=== PATIENT | male | born 1995 | race Caucasian/White ===

== ENCOUNTER 2017-01-10 11:14 | Emergency (ER) | payer OTHER ==
[2016-08-06 02:35] VITALS: BP 116/69
--- NOTE | 2017-01-10 11:36 | ED Physician Documentation ---
General Adult - HISTORIAN Historian: patient - HPI Chief Complaint: General Adult Onset: days ago Further Comments: yes (21 year old male patient presents with request for STD testing and treatment. Patient states his girlfriend told him to go be tested and treated. Patient unsure of her diagnosis. Patient denies any symptoms.) - ROS CONST: no problems EYES/ENT: none CVS/RESP: none GI/: none MS/SKIN/LYMPH: none NEURO/PSYCH: denies: headache - PAST HX Past History: none Other History: none Allergies/Adverse Reactions: Allergies Allergy/AdvReac Type Severity Reaction Status Date / Time No Known Drug Allergies Allergy Verified 08/06/16 01:13 Home Medications: Ambulatory Orders Medication Instructions Recorded NK [NK] 08/06/16 - SOCIAL HX Smoking History: cigarettes - FAMILY HX Family History: No - VITAL SIGNS Vital Signs: Vital Signs Temp Pulse Resp BP Pulse Ox 116/69 08/06/16 02:25 - REVIEWED ASSESSMENTS Nursing Assessment Reviewed: Yes Vitals Reviewed: Yes Progress - Progress Progress: STD education, encouraged patient to call girlfriend and find out exact diagnosis. Patient called girlfriend, who reported having Gardnerella. Educated patient on bacterial vaginosis. Explained he did not need testing or treatment. No intercourse until she completes treatment. General Adult Physical Exam - PHYSICAL EXAM GENERAL APPEARANCE: [id number] N EENT: eye inspection normal, JOSE CVS: reg rate & rhythm RECTAL: other (patient refused male exam) NEURO: oriented X3 Discharge Clincal Impression: Concern about STD in male without diagnosis Referrals: Primary Doctor,No [Primary Care Provider] - 2 Days Additional Instructions: Do not have sexual intercourse with your partner until she has finished her treatment for Bacterial Vaginosis (gardnerella) Home Medications: Ambulatory Orders NK [NK] 08/06/16 Condition: Stable Disposition: 01 HOME, SELF-CARE Decision to Admit: NO Decision Time: 11:35
== END 2017-01-10 11:40 | disposition home or self-care (01) ==
LOC: ED 11:14
DX: Z71.1 Person with feared health complaint in whom no diagnosis is made (principal)

== ENCOUNTER 2017-10-17 03:06 | Emergency (ER) | payer OTHER ==
[2017-10-17] MEDS: IPRATROPIUM/ALBUTEROL SULFATE 3 ML AMPUL.NEB NEB STA (03:28)
--- NOTE | 2017-10-17 04:02 | ED Physician Documentation ---
Upper Respiratory Symptoms - HISTORIAN Historian: patient - HPI Stated Complaint: difficulty breathing Chief Complaint: Cough/ Upper Respiratory Onset: days ago (14) Duration: other (worse) Context: denies: recent foreign travel, insect bite(s), tick(s), recent chemotherapy, multiple patients, same sx, other Severity: moderate Associated Symptoms: sinus drainage, hoarseness, other (dry cough). denies: fever, chills, sweating, earache, runny nose, sinus pain, sore throat, allergy, hay fever, bloody cough, productive cough, headache Further Comments: yes (22 year old male patient presents with complaint of cough and wheezing. Patient states he was "been dealing with this about 2 weeks ". States symptoms have become worse since he stopped smoking meth. Reports history of asthma as a child, has not had an inhaler since he was 13.) - ROS CONST/EYES: denies: weakness, eye redness, eye itching, other CVS/RESP: shortness of breath. denies: chest pain, palpitations LYMPH: denies: leg swelling, rash, swollen glands, ankle swelling, other GI/: none NEURO/PSYCH: denies: fainting, dizziness, confusion, anxiety, depression, other MS/SKIN: denies: joint pain, muscle aches, rash, other - PAST HX Lung Disease: asthma PE Risk Factors: none Allergies/Adverse Reactions: Allergies Allergy/AdvReac Type Severity Reaction Status Date / Time No Known Drug Allergies Allergy Verified 10/17/17 03:22 Home Medications: Ambulatory Orders Medication Instructions Recorded Albuterol Sulfate [Proair HFA] 1 inh IH Q4H PRN #1 hfa.aer.ad 10/17/17 Azithromycin [Zithromax] 250 mg PO DAILY #6 tablet 10/17/17 - SOCIAL HX Smoking History: cigarettes Drug Use: methamphetamines - FAMILY HX Family History: denies: none - VITAL SIGNS Vital Signs: Vital Signs Temp Pulse Resp BP Pulse Ox 97.9 F 81 16 148/69 97 10/17/17 03:07 10/17/17 04:50 10/17/17 04:50 10/17/17 04:50 10/17/17 04:50 - REVIEWED ASSESSMENTS Nursing Assessment Reviewed: Yes Vitals Reviewed: Yes Progress - Progress Progress: BBS improved after duoneb; faint expiratory on right. ED Results Lab/Radiology - Lab Results Lab Results: Lab Results 10/17/17 10/17/17 04:04 04:04 WBC 11.50 K/ul K/ul (4.00-12.00) RBC 5.13 M/ul M/ul (3.90-5.20) Hgb 15.6 g/dL g/dL (12.0-18.0) Hct 47.8 % % (37.0-53.0) MCV 93.3 fl fl (80.0-100.0) MCH 30.4 pg pg (28.0-34.0) MCHC 32.6 g/dL g/dL (30.0-36.0) RDW 12.9 % % (11.3-14.3) Plt Count 207 K/mm3 K/mm3 (130-400) Neut % (Auto) 68.1 % % (39.0-79.0) Lymph % (Auto) 21.1 % % (16.0-50.0) [place] % (Auto) 4.7 % % (0.0-11.0) Eos % (Auto) 4.5 % % (0.0-6.8) Baso % (Auto) 0.4 (0.0-1.5) Neut # (Auto) 7.8 # k/uL H # k/uL (1.4-7.7) Lymph # (Auto) 2.4 # k/uL # k/uL (0.6-4.0) [place] # (Auto) 0.5 # k/uL # k/uL (0.0-0.9) Eos # (Auto) 0.5 # k/uL # k/uL (0.0-0.6) Baso # (Auto) 0.0 # k/uL # k/uL (0.0-0.5) Reactive Lymphs % 1.2 % % (0.0-5.0) Reactive Lymphs # 0.1 # k/uL # k/uL (0.0-0.8) Sodium 141 mmol/L mmol/L (136-145) Potassium 3.8 mmol/L mmol/L (3.5-5.1) Chloride 99 mmol/L mmol/L (98-107) Carbon Dioxide 29 mmol/L mmol/L (22-30) BUN 10 mg/dL mg/dL (9-20) Creatinine 1.00 mg/dL mg/dL (0.66-1.25) Estimated Creat Clear 124 Est GFR ( Amer) > 60 (60 - ) Est GFR (Non-Af Amer) > 60 (60 - ) Glucose 89 mg/dL mg/dL (74-106) Calcium 9.4 mg/dL mg/dL (8.4-10.2) Total Bilirubin 0.6 mg/dL mg/dL (0.2-1.3) AST 34 U/L U/L (15-46) ALT 42 U/L U/L (13-69) Alkaline Phosphatase 108 U/L U/L (38-126) Total Protein 7.2 g/dL g/dL (6.3-8.2) Albumin 4.4 g/dL g/dL (3.5-5.0) - Radiology Radiology Impressions: PA and lateral chest Clinical history: PT STATES PRODUCTIVE COUGH X 2 WEEKS Findings: Examination of the chest in PA and lateral views with no prior films for comparison demonstrates the lungs to be hyperinflated but clear. Cardiovascular and mediastinal silhouettes are within normal limits. Bony thorax is intact. Impression: 1. Hyperinflation. 2. No active disease. Electronically signed on Oct 17, 2017 4:03:19 AM ABORIGINAL LIAISON OFFICER by: [place] - Orders Orders: ED Orders Category Date Time Status CHEST 2VIEW [RAD] Stat Exams 10/17/17 03:45 Completed CBC/PLATELET/DIFF Stat Lab 10/17/17 04:04 Completed CMP Stat Lab 10/17/17 04:04 Completed Albuterol Sulfate [ProAir RespiClick] Med 10/17/17 04:16 Discontinued 1 puff INH .STK-MED ONE Albuterol Sulfate [ProAir RespiClick] Med 10/17/17 04:12 Discontinued 1 puff INH Q4H PRN Albuterol Sulfate [Ventolin] Med 10/17/17 04:11 Discontinued 2.5 mg NEB NOW ONE Guaifenesin/Codeine Phosphate [Robitussin AC] Med 10/17/17 03:29 Discontinued 10 ml PO NOW ONE Ipratropium/Albuterol Sulfate [Duoneb] Med 10/17/17 03:23 Discontinued 3 ml NEB STAT STA Upper Respiratory Symptoms - EXAM General Appearance: mild distress EENT: eyes nml inspection, nml ENT inspection, lids & conjunct. nml, PERRL, ear nml, nose nml, pharynx nml, airway nml Respiratory: no resp. distress, no pain on inspiration, speaks full sentences, wheezes (expiratory, bilaterally), no pleuritic chest pain Abdomen: non-tender, no organomegaly, nml bowel sounds, no distention CVS: reg rate & rhythm, heart sounds normal, equal pulses, no murmur, no gallop , PMI nml, no JVD, no friction rub, 24 Skin: color nml, no rash, warm,dry Extremities: non-tender, normal range of motion, no evidence of injury, no edema , J, STREET [employer] Neuro/Psych: oriented x3, neuro intact, mood/affect nml, CN's nml as tested Discharge Clincal Impression: History of methamphetamine abuse Asthma Qualifiers: Asthma severity: mild Asthma persistence: intermittent Asthma complication type : uncomplicated Qualified Code(s): J45.20 - Mild intermittent asthma, uncomplicated Prescriptions: Albuterol Sulfate [Proair HFA] 1 inh IH Q4H PRN #1 hfa.aer.ad PRN Reason: Wheezing Azithromycin [Zithromax] 250 mg PO DAILY #6 tablet Referrals: Primary Doctor,No [Primary Care Provider] - 2 Days Additional Instructions: 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 acoustical tile carpenters supervisor an over the counter decongestant such as dayquil. You may want to try Vicks rub on your chest and/or feet Increase your fluid intake Tylenol or Ibuprofen as needed for fever, pain and body aches. See your primary care doctor if your symptoms become worse or do not improve in the next 2-3 days. See your primary doctor or return to the ER if you have increase shortness of breath or difficulty breathing Condition: Stable Disposition: 01 HOME, SELF-CARE Decision to Admit: NO Decision Time: 04:40
[2017-10-17] MEDS: GUAIFENESIN/CODEINE 10 ML S/F LIQUID DOSE CUP PO ONE (04:10)
[2017-10-17 04:11] LABS: BASOPHILS % 0.4 (0.0-1.5); EOSINOPHILS % 4.5 % (0.0-6.8); MEAN CORPUSCULAR HEMOGLOBIN 30.4 pg (28.0-34.0); MEAN CORPUSCULAR VOLUME 93.3 fl (80.0-100.0); MONOCYTES % 4.7 % (0.0-11.0); NEUTROPHILS # 7.8 # k/uL (1.4-7.7)
[2017-10-17] MEDS: ALBUTEROL SULFATE 2.5 MG/3 ML AMPUL.NEB NEB ONE (04:15)
--- NOTE | 2017-10-17 04:15 | Diagnostic Imaging Report ---
FRACISCO PABON (CONTACT AGENT) - ER [facility] [address] [id number] Report Submission Date: Oct 17, 2017 4:03:19 AM ACCELERATOR SYSTEMS DIRECTOR Patient Study Name: AUBREY REYNOLDS Date: Oct 17, 2017 3:50:04 AM ACCELERATOR SYSTEMS DIRECTOR Modality Type: DX Gender: M Description: CHEST : 89 Institution: [facility] Physician: FRACISCO PABON (CONTACT AGENT) - ER PA and lateral chest Clinical history: PT STATES PRODUCTIVE COUGH X 2 WEEKS Findings: Examination of the chest in PA and lateral views with no prior films for comparison demonstrates the lungs to be hyperinflated but clear. Cardiovascular and mediastinal silhouettes are within normal limits. Bony thorax is intact. Impression: 1. Hyperinflation. 2. No active disease. Electronically signed on Oct 17, 2017 4:03:19 AM ACCELERATOR SYSTEMS DIRECTOR by: [place]
[2017-10-17] MEDS ORDERED: ALBUTEROL SULFATE 200 PUFF INHALER INH ONE (04:16)
[2017-10-17] MEDS: ALBUTEROL SULFATE 200 PUFF INHALER INH PRN (04:17)
[2017-10-17 04:21] LABS: eGFR (African) > 60; eGFR (Non-African) > 60
[2017-10-17 04:52] VITALS: BP 148/69
== END 2017-10-17 04:23 | disposition home or self-care (01) ==
LOC: ED 03:06
DX: J45.20 Mild intermittent asthma, uncomplicated (principal)
CPT/HCPCS: 71046; 80053; 85025; 94640; 99282; 99283

== ENCOUNTER 2017-11-18 06:40 | Emergency (ER) | payer OTHER ==
--- NOTE | 2017-11-18 06:41 | ED Physician Documentation ---
General Adult - HISTORIAN Historian: patient - HPI Stated Complaint: sob Chief Complaint: General Adult Onset: hours Timing: still present Severity: moderate Further Comments: yes (Pt is a 22 yo male with shortness of breath. Pt has a hx asthma and is rx'd ProAir at home, but is this didn't help. Pt's sx have been coming on for the past few days.) - ROS CONST: no problems EYES/ENT: none CVS/RESP: shortness of breath, other (wheezing) GI/: none MS/SKIN/LYMPH: none - PAST HX Past History: asthma Other History: none - SOCIAL HX Smoking History: cigarettes - FAMILY HX Family History: No - VITAL SIGNS Vital Signs: Vital Signs Temp Pulse Resp BP Pulse Ox 148/69 10/17/17 04:50 - REVIEWED ASSESSMENTS Nursing Assessment Reviewed: Yes Vitals Reviewed: Yes <Sajan Loco - Last Filed: 11/18/17 06:47> - HISTORIAN Historian: patient - VITAL SIGNS Vital Signs: Vital Signs Temp Pulse Resp BP Pulse Ox 97.8 F 96 H 16 135/65 96 11/18/17 06:40 11/18/17 06:40 11/18/17 06:40 11/18/17 06:40 11/18/17 06:40 <Elham Urban - Last Filed: 11/18/17 07:54> - PAST HX Allergies/Adverse Reactions: Allergies Allergy/AdvReac Type Severity Reaction Status Date / Time No Known Drug Allergies Allergy Verified 11/18/17 06:43 Home Medications: Ambulatory Orders Medication Instructions Recorded Albuterol Sulfate [Proair HFA] 1 inh IH Q4H PRN #1 hfa.aer.ad 10/17/17 Guaifenesin [Mucinex] 600 mg PO DAILY 11/18/17 Loratadine [Claritin] 10 mg PO DAILY 11/18/17 Oxymetazoline HCl [12 Hour Nasal 15 ml NS DAILY 11/18/17 Relief] Progress - Progress Progress: Duoneb HFN <Sajan Loco - Last Filed: 11/18/17 06:47> - Progress Progress: 0735: wheezing is decreased to Right upper lung . Good inspiratory and expiratory movement. Less shortness of air per his report. He does not have a PCP. This was discussed. DG <Elham Urban - Last Filed: 11/18/17 07:54> ED Results Lab/Radiology - Orders Orders: ED Orders Category Date Time Status Budesonide [Pulmicort] Med 11/18/17 07:00 Ordered 0.5 mg NEB BID Ipratropium/Albuterol Sulfate [Duoneb] Med 11/18/17 06:45 Discontinued 3 ml NEB .STK-MED ONE Ipratropium/Albuterol Sulfate [Duoneb] Med 11/18/17 06:44 Discontinued 3 ml NEB NOW ONE <Elham Urban - Last Filed: 11/18/17 07:54> General Adult Physical Exam - PHYSICAL EXAM GENERAL APPEARANCE: moderate distress EENT: pharynx normal NECK: normal inspection, supple RESPIRATORY: wheezes CVS: reg rate & rhythm, heart sounds normal ABDOMEN: soft, no organomegaly, normal bowel sounds BACK: normal inspection SKIN: warm/dry, normal color EXTREMITIES: non-tender, normal range of motion, no evidence of injury, no edema NEURO: oriented X3, motor nml, sensation nml <Sajan Loco - Last Filed: 11/18/17 06:47> - PHYSICAL EXAM GENERAL APPEARANCE: mild distress (states he feels he is improving) RESPIRATORY: wheezes (expiratory right upper and lower ) CVS: reg rate & rhythm, heart sounds normal BACK: normal inspection SKIN: warm/dry, normal color NEURO: oriented X3 <Elham Urban - Last Filed: 11/18/17 07:54> Discharge <Sajan Loco - Last Filed: 11/18/17 06:47> Comments: 1. Use of Proair as needed 2. Obtain PCP for asthma care 3. Medrol dose pack as prescribed starting tomorrow 11.19.2017 4. Return to ER for any concerns Decision to Admit: NO Date of Decison to Admit: 11/18/17 Decision Time: 07:54 <Elham Urban - Last Filed: 11/18/17 07:54> Clincal Impression: Asthma Qualifiers: Asthma severity: moderate Asthma persistence: unspecified Asthma complication type: with acute exacerbation Qualified Code(s): J45.901 - Unspecified asthma with (acute) exacerbation Referrals: Primary Doctor,No [Primary Care Provider] - 2 Days Condition: Stable Disposition: HOME, SELF-CARE
[2017-11-18] MEDS ORDERED: IPRATROPIUM/ALBUTEROL SULFATE 3 ML AMPUL.NEB NEB ONE ×2 (06:44→06:45)
[2017-11-18 06:47] VITALS: BP 135/65
[2017-11-18] MEDS ORDERED: BUDESONIDE 0.5MG/2ML AMPUL.NEB NEB ONE (06:58)
[2017-11-18] MEDS ORDERED: BUDESONIDE 0.5MG/2ML AMPUL.NEB NEB SCH (07:00)
[2017-11-18] MEDS ORDERED: methylPREDNISolone SOD SUCC 125 MG/2 ML VIAL ONE (07:18)
[2017-11-18] MEDS ORDERED: methylPREDNISolone SOD SUCC 125 MG/2 ML VIAL IM ONE (07:18)
[2017-11-18] MEDS ORDERED: ALBUTEROL SULFATE 2.5 MG/3 ML AMPUL.NEB NEB ONE (07:45)
== END 2017-11-18 07:54 | disposition home or self-care (01) ==
LOC: ED 06:40
DX: J45.901 Unspecified asthma with (acute) exacerbation (principal)
CPT/HCPCS: J2930; J7626; 94640; 96372; 99283

== ENCOUNTER 2018-08-22 15:20 | Emergency (ER) | payer SELFPAY ==
[2018-08-22] MEDS ORDERED: 0.9 % SODIUM CHLORIDE 1,000 ML IV ONE (15:40)
--- NOTE | 2018-08-22 15:40 | ED Physician Documentation ---
General Adult - HISTORIAN Historian: patient - HPI Stated Complaint: Vomiting Chief Complaint: General Adult Onset: hours Timing: still present Severity: moderate Further Comments: yes (Pt is a 23 yo male with n/v that began this am after he awoke. Pt has not had fever. He did have some loose bowel movements over the past few days. Pt has not felt lightheaded. He does not recall eating any food that tasted bad.) - ROS CONST: no problems EYES/ENT: none CVS/RESP: none GI/: vomiting MS/SKIN/LYMPH: none - PAST HX Past History: asthma Allergies/Adverse Reactions: Allergies Allergy/AdvReac Type Severity Reaction Status Date / Time shellfish derived Allergy Hives Verified 08/22/18 15:33 Home Medications: Ambulatory Orders Medication Instructions Recorded Albuterol Sulfate [Proair HFA] 1 inh IH Q4H PRN #1 hfa.aer.ad 10/17/17 - SOCIAL HX Smoking History: cigarettes - FAMILY HX Family History: No - VITAL SIGNS Vital Signs: Vital Signs Temp Pulse Resp BP Pulse Ox 98.5 F 90 16 126/86 97 08/22/18 15:28 08/22/18 15:28 08/22/18 15:28 08/22/18 15:28 08/22/18 15:28 - REVIEWED ASSESSMENTS Nursing Assessment Reviewed: Yes Vitals Reviewed: Yes Progress - Progress Progress: Zofran 4 mg IV NS 1 L IVF some improvement General Adult Physical Exam - PHYSICAL EXAM GENERAL APPEARANCE: mild distress EENT: pharynx normal NECK: normal inspection, supple RESPIRATORY: no resp distress, chest non-tender, breath sounds normal CVS: reg rate & rhythm, heart sounds normal ABDOMEN: soft, no organomegaly, normal bowel sounds BACK: normal inspection, no CVA tenderness SKIN: warm/dry, normal color EXTREMITIES: non-tender, normal range of motion, no evidence of injury NEURO: oriented X3, motor nml, sensation nml Discharge Clincal Impression: probable viral illness, nausea/vomiting Referrals: Primary Doctor,No [Primary Care Provider] - Condition: Stable Disposition: 01 HOME, SELF-CARE Decision to Admit: NO Decision Time: 16:33
[2018-08-22] MEDS ORDERED: ONDANSETRON HCL/PF 4 MG/ 2ML VIAL IVP ONE (15:41)
[2018-08-22 16:55] VITALS: BP 112/74
[2018-08-23 07:25] LABS: BASOPHILS % 0.4 (0.0-1.5); EOSINOPHILS % 4.3 % (0.0-6.8); MEAN CORPUSCULAR HEMOGLOBIN 29.4 pg (28.0-34.0); NEUTROPHILS # 4.5 # k/uL (1.4-7.7)
[2018-08-23 07:26] LABS: eGFR (Non-African) > 60
== END 2018-08-22 16:45 | disposition home or self-care (01) ==
LOC: ED 15:20
DX: R11.2 Nausea with vomiting, unspecified (principal)
CPT/HCPCS: 36415; 80053; 83690; 85025; 96374; 99282; 99284; J2405; J7030; S1016